=== PATIENT | female | born 2000 | race Native Hawaiian/Other Pacific Islander ===

== ENCOUNTER 2021-09-03 13:58 | Outpatient (CLI) | payer MEDICAID, SELFPAY ==
--- NOTE | 2021-09-03 14:00 | CRLHL7_ITS ---
For Patients: As a result of the Cures Act, medical imaging exams and procedure reports are released immediately into your electronic medical record. You may view this report before your referring provider. If you have questions, please contact your health care provider. INDICATION: First trimester scan, establish dates. COMPARISON: None. TECHNIQUE: Real-time hollis-scale imaging of the pelvis was performed. FINDINGS: Sonographic imaging demonstrates a single living intrauterine gestation. The embryo demonstrates a regular cardiac rate measuring 159 beats per minute. The embryo`s crown-rump length measurement of 1.4 cm corresponds to a gestational age of 7 weeks 5 days with a sonographic due date of 04/17/2022. There is a normal-appearing yolk sac. There are no gross abnormalities noted within the embryo at this early state of development. The gestational sac has a normal appearance. There is a 1.6 x 0.5 x 1.5 cm perigestational hemorrhage. The amount of fluid within the sac appears appropriate for gestational age. The cervix is closed. The myometrium appears normal. The ovaries are of normal size. Corpus luteal cyst left ovary. There are no suspicious fluid collections noted in the cul-de-sac. IMPRESSION: Single living intrauterine with sonographic gestational age 7 weeks 5 days and a sonographic due date 04/17/2022. Mid uterine subchorionic hemorrhage measuring 1.6 x 0.5 x 1.5 cm. Dictated by Maurice Carter MD @ 09/03/2021 3:26:50 PM (Electronically Signed)
== END 2021-09-03 13:59 | disposition home or self-care (01) ==
LOC: US 13:59
PROVIDERS: Visit Provider Registered Nurse
DX: Z34.91 Encounter for supervision of normal pregnancy, unspecified, first trimester (principal); Z3A.01 Less than 8 weeks gestation of pregnancy
CPT/HCPCS: 76817

== ENCOUNTER 2021-09-27 18:27 | Emergency (ER) | payer MEDICAID, SELFPAY ==
[2021-09-27 18:37] VITALS: BP 103/69; PULSE 68; RESP 20; TEMP 36; O2SAT 100; BMI 27.8
--- NOTE | 2021-09-27 19:04 | ED.GENADULT ---
HPI - General Adult General Chief complaint: Weakness Stated complaint: Lightheaded, shaking, vomiting Time Seen by Provider: 09/27/21 18:35 Source: patient Mode of arrival: ambulatory Limitations: no limitations History of Present Illness HPI narrative: 21-year-old female at 11 weeks gestation coming in today complaining of nausea and vomiting. States that she has been very nauseated her entire but the vomiting started about 3 days ago. She was prescribed promethazine and She was instructed to start taking Unisom and B6 but she has not gotten around to doing that yet. She denies any fevers or chills. She does complain of lower abdominal discomfort that comes and goes but she describes it as a discomfort and not pain or cramping. She denies any vaginal bleeding or discharge. She denies any sick contacts. She is not short of breath. She denies headaches blurry vision or shortness of breath. She has a healthy almost 2-year-old at home. Related Data Home Medications Medication Instructions Recorded Confirmed prenat.vits,misael,[id number] 1 tab PO QDAY 09/03/21 09/27/21 Previous Rx's Medication Instructions Recorded azithromycin 1 gram oral packet 1 g PO ONCE #1 ea 09/04/21 promethazine 12.5 mg tablet 12.5 mg PO TID PRN nausea and 09/27/21 vomiting #30 tabs Allergies Allergy/AdvReac Type Severity Reaction Status Date / Time No Known Allergies Allergy Verified 09/27/21 19:12 Review of Systems Status of ROS: Reports: 10 or more systems reviewed and unremarkable except as noted in History and below PFSH [facility] Medical History Chlamydia infection affecting Cyst of vulva History of persistent depressive disorder (09/13/15) Surgical History Status post delivery (2019) Family History Other Diabetes Down syndrome Social History Smoking Status: Former smoker Do you use any of these nicotine containing products: None Second hand tobacco smoke exposure: No How often do you have a drink containing alcohol: never How often do you have six or more drinks on one occasion: Never AUDIT-C Alcohol total score: 0 Non-prescribed substance use: denies use Little interest or pleasure in doing things: several days Feeling down, depressed, or hopeless: not at all service: No Exam Narrative: Exam Narrative: Well-nourished well-developed patient in no acute distress. Alert and oriented. Answers questions appropriately. Mood and affect are appropriate. Thoughts are goal oriented and rational. No tangential or magical thinking noted. Patient speaks in full sentences without needing to catch their breath. HEENT: Normocephalic atraumatic. Pupils are equally round reactive to light. Extraocular muscles are intact. Conjunctivae are moist without any icterus noted. Moist mucous membranes. Posterior pharynx is normal. Neck is soft without any lymphadenopathy or thyromegaly. No masses are appreciated. Cardiovascular: Heart is regular rate and rhythm S1 and S2 are present without any murmurs. Lungs: Clear to auscultation bilaterally no wheezes rhonchi or rales are appreciated. Patient takes deep breaths without any discomfort. Abdomen: Soft and nontender nondistended with normal bowel sounds. No guarding or rebound. No masses or organomegaly appreciated. Extremities: Bilateral lower extremities are without edema. Normal DP and PT pulses. Skin: Well perfused without any obvious rashes. Const: Vital Signs, click to edit/add: Vital Signs - 24 hr 09/27/21 18:37 09/27/21 19:26 Temperature 96.8 F L 97.1 F L Pulse Rate [Pulse Oximeter] 68 65 Respiratory Rate 20 20 Blood Pressure [Ri t Upper Arm] 103/69 98/65 Pulse Oximetry 100 100 Oxygen Delivery Me thod Room Air Room Air Course Course Hospital Course: IV was started and patient received 2L of normal saline and IV Zofran. She was feeling much better. Labs were unremarkable. Vital Signs Vital signs: Initial Vital Signs Temperature 96.8 F L 09/27/21 18:37 Temperature Source Temporal Artery Scan 09/27/21 18:37 Pulse Rate 68 09/27/21 18:37 Pulse Rhythm 09/27/21 18:37 Respiratory Rate 20 09/27/21 18:37 Blood Pressure 103/69 09/27/21 18:37 Blood Pressure Mean 80 09/27/21 18:37 Pulse Oximetry 100 09/27/21 18:37 Oxygen Delivery Method 09/27/21 18:37 Vital Signs Temperature 96.8 F L 09/27/21 18:37 Pulse Rate 68 09/27/21 18:37 Respiratory Rate 20 09/27/21 18:37 Blood Pressure 103/69 09/27/21 18:37 Pulse Oximetry 100 09/27/21 18:37 Oxygen Delivery Method 09/27/21 18:37 Temperature 97.2 F L 09/27/21 20:56 Pulse Rate 67 09/27/21 20:56 Respiratory Rate 18 09/27/21 20:56 Blood Pressure 96/60 09/27/21 20:56 Pulse Oximetry 100 09/27/21 20:56 Oxygen Delivery Method 09/27/21 20:56 Medical Decision Making MDM Narrative Medical decision making narrative: 21-year-old female with nausea and vomiting in . Patient discharged home in improved condition. She will start Unisom and B6 as previously instructed. She has a follow-up appointment this Monday. Return to the ER if symptoms worsen again. Lab Data Lab results reviewed: Yes I reviewed the patient's lab results Labs: Lab Results 09/27/21 09/27/21 09/27/21 Range/Units 19:10 19:10 21:20 WBC 9.04 (4.50-11.00) K/uL RBC 4.42 (4.00-5.20) m/uL Hgb 13.4 (12.0-16.0) gm/dL Hct 38.3 (33.0-51.0) % MCV 87 (80-100) fL MCH 30 (26-34) pg MCHC 35 (32-36) gm/dL RDW Coeff of Perla 11.9 (11.5-15.5) % Plt Count 252 (140-440) K/uL Neut % (Auto) 61.2 (42.0-72.0) % Lymph % (Auto) 29.9 (20-44) % [place] % (Auto) 6.5 (0.0-11.0) % Eos % (Auto) 1.5 (0.0-7.0) % Baso % (Auto) 0.2 (0.0-3.0) % Neut # (Auto) 5.53 (1.7-7.0) K/uL Lymph # (Auto) 2.70 (0.90-2.90) K/uL [place] # (Auto) 0.60 (0.00-0.90) K/UL Eos # (Auto) 0.14 (0.00-0.50) K/uL Baso # (Auto) 0.02 (0.00-0.30) K/uL Abs Immat Gran (auto) 0.06 (0.00-0.30) K/uL Sodium 137 (135-149) mmol/L Potassium 3.4 L (3.6-5.1) mmol/L Chloride 105 (96-114) mmol/L Carbon Dioxide 22 (20-32) mmol/L BUN 5 (5-24) mg/dL Creatinine 0.4 L (0.5-1.5) mg/dL Estimated Creat Clear 190.50 Estimated GFR 143 ml/min Glucose 72 (60-115) mg/dL Calcium 8.8 (8.4-10.6) mg/dL Total Bilirubin 0.3 (0.1-1.5) mg/dL Direct Bilirubin 0.1 (0.0-0.5) mg/dL AST 20 (12-35) U/L ALT 15 (4-35) U/L Alkaline Phosphatase 89 (40-150) U/L Total Protein 7.4 (6.0-8.3) g/dL Albumin 4.2 (3.3-5.0) g/dL Urine Color Yellow (Yellow) Urine Appearance Clear (Clear) Urine pH 6.0 (5.0-8.5) Ur Specific [place] >= 1.030 (1.000-1.030) Urine Protein Negative (Negative) Urine Glucose (UA) Negative (Negative) Urine Ketones 4+ A (Negative) Urine Blood Negative (Negative) Urine Nitrite Negative (Negative) Urine Bilirubin Negative (Negative) Urine Urobilinogen 0.2 (0.2-1.0) Ur Leukocyte Esterase Negative (Negative) Urine RBC 0-2 (0-2) Urine WBC 2-5 (0-5) Ur Squamous Epith Cells Many A (None-Few) Urine Bacteria None (None) Discharge Plan Discharge Clinical Impression: Vomiting affecting Patient Disposition: Home, Self-Care Condition: Improved Additional Instructions: Start Unisom and vitamin B6 as previously instructed. If you cannot keep down fluids return to the ER. Follow up on Monday as scheduled. Prescriptions: No Action prenat.vits,misael,[id number] Tablet 1 tab PO QDAY azithromycin 1 gram packet 1 g PO ONCE Qty: 1 0RF promethazine 12.5 mg tablet 12.5 mg PO TID PRN (Reason: nausea and vomiting) Qty: 30 1RF Follow Up/Referrals: Provider,Not a Local [Referring] - Stand Alone Forms: My[facility] Info Instructions
[2021-09-27] MEDS: 0.9 % SODIUM CHLORIDE 1000 ml 1,000 ML IV ×2 (19:11→20:15)
[2021-09-27] MEDS: ONDANSETRON 2 MG/ML inj 4 MG IVP (19:18)
[2021-09-27 19:26] VITALS: BP 98/65; PULSE 65; RESP 20; TEMP 36.2; O2SAT 100
[2021-09-27 19:46] LABS: Basophils Absolute Auto 0.02 K/uL (0.00-0.30); Basophils Percent Auto 0.2 % (0.0-3.0); Eosinophils Absolute Auto 0.14 K/uL (0.00-0.50); Eosinophils Percent Auto 1.5 % (0.0-7.0); Hematocrit 38.3 % (33.0-51.0); Hemoglobin* 13.4 gm/dL (12.0-16.0); Immature Granulocytes Abs Auto 0.06 K/uL (0.00-0.30); Lymphocytes Percent Auto 29.9 % (20-44); Mean Corpuscular HGB Conc 35 gm/dL (32-36); Mean Corpuscular Hemoglobin 30 pg (26-34); Mean Corpuscular Volume 87 fL (80-100); Monocytes Percent Auto 6.5 % (0.0-11.0); Neutrophils Absolute Auto 5.53 K/uL (1.7-7.0); Neutrophils Percent Auto 61.2 % (42.0-72.0); Platelet Count* 252 K/uL (140-440); RDW Coefficient of Variation % 11.9 % (11.5-15.5); Red Blood Count 4.42 m/uL (4.00-5.20); White Blood Count* 9.04 K/uL (4.50-11.00)
[2021-09-27 19:48] LABS: Slide Review Reflex No
[2021-09-27 19:58] LABS: Albumin* 4.2 g/dL (3.3-5.0); Chloride* 105 mmol/L (96-114); Potassium* 3.4 mmol/L (3.6-5.1); Sodium* 137 mmol/L (135-149)
[2021-09-27 20:00] LABS: Creatinine* 0.4 mg/dL (0.5-1.5); Estimated Glomerular Filt Rate 143 ml/min
[2021-09-27 20:01] LABS: Alanine Aminotransferase* 15 U/L (4-35); Alkaline Phosphatase* 89 U/L (40-150); Aspartate Amino Transferase* 20 U/L (12-35); Bilirubin Direct* 0.1 mg/dL (0.0-0.5); Bilirubin Total* 0.3 mg/dL (0.1-1.5); Blood Urea Nitrogen* 5 mg/dL (5-24); Calcium* 8.8 mg/dL (8.4-10.6); Carbon Dioxide* 22 mmol/L (20-32); Glucose* 72 mg/dL (60-115); Total Protein* 7.4 g/dL (6.0-8.3)
[2021-09-27 20:56] VITALS: BP 96/60; PULSE 67; RESP 18; TEMP 36.2; O2SAT 100
[2021-09-27 21:27] LABS: Appearance Urine Clear (Clear); Bilirubin Urine Negative (Negative); Blood Urine Negative (Negative); Color Urine Yellow (Yellow); Glucose Urine Negative (Negative); Ketones Urine 4+ (Negative); Leukocyte Esterase Urine Negative (Negative); Nitrite Urine Negative (Negative); Protein Urine Negative (Negative); Specific Gravity Urine >= 1.030 (1.000-1.030); Urobilinogen Urine 0.2 (0.2-1.0)
[2021-09-27 21:45] LABS: RBC Urine 0-2 (0-2); Squamous Epithelial Cell Urine Many (None-Few)
== END 2021-09-27 21:33 | disposition home or self-care (01) ==
PROVIDERS: Emergency Provider Family Medicine; PCP Obstetrics & Gynecology
DX: R11.10 Vomiting, unspecified (principal); Z3A.11 11 weeks gestation of pregnancy
CPT/HCPCS: 36415; 80048; 80076; 81001; 85025; 87086; 96374; 99283; 99284; J2405; J7030

== ENCOUNTER 2021-10-01 11:22 | Outpatient (CLI) | payer MEDICAID, SELFPAY ==
[2021-10-01 17:05] LABS: Chlamydia DNA Amplified* NOT DETECTED (No Detected); GC DNA Amplified* NOT DETECTED (No Detected)
== END 2021-10-01 11:23 | disposition home or self-care (01) ==
LOC: NFLDREF 11:23
PROVIDERS: PCP Obstetrics & Gynecology; Visit Provider Obstetrics & Gynecology
DX: A74.9 Chlamydial infection, unspecified (principal); O98.811 Other maternal infectious and parasitic diseases complicating pregnancy, first trimester; Z3A.12 12 weeks gestation of pregnancy
CPT/HCPCS: 87491; 87591

== ENCOUNTER 2021-11-07 06:13 | Emergency (ER) | payer MEDICAID, SELFPAY ==
--- NOTE | 2021-11-07 06:39 | CRLHL7_ITS ---
For Patients: As a result of the Cures Act, medical imaging exams and procedure reports are released immediately into your electronic medical record. You may view this report before your referring provider. If you have questions, please contact your health care provider. INDICATION: 17 weeks . Pain. FINDINGS: Fetus: Single. Presentation: Cephalic. cardiac xhyeilcz=211 beats per minute and regular. Placenta: Anterior, os clear. Amniotic fluid: Adequate. Cervix: 3.7 cm in length. Adnexa: Unremarkable. No acute abnormalities identified. Dictated by Behzad Barnes MD @ 11/07/2021 8:32:42 AM Dictated by: Behzad Barnes MD @ 11/07/2021 08:32:50 (Electronically Signed)
[2021-11-07 06:43] VITALS: BP 98/66; PULSE 74; RESP 18; TEMP 36.9; O2SAT 99; BMI 26.4
--- NOTE | 2021-11-07 06:43 | ED.PREGNANCY ---
HPI - General Chief complaint: OB/Uterine Contractions <Aiden Izaguirre MD - Last Filed: 11/07/21 06:49> Stated complaint: 17 weeks and cramping <Aiden Izaguirre MD - Last Filed: 11/07/21 06:49> Time Seen by Provider: 11/07/21 06:28 <Aiden Izaguirre MD - Last Filed: 11/07/21 06:49> History of Present Illness HPI Narrative: Pt is a 21 year old woman who is 17 weeks who comes in with low pelvic discomfort. She has had no vaginal bleeding or discomfort. Her current has been complicated by vomiting however she has not had any vomiting for the past 2 days. Current otherwise progressing fine. No fevers or chills. No dysuria. No other abdominal pain. Pain is concerned about the status of her baby and would like an ultrasound. Discomfort is mild. She is otherwise up to date on her care. <Aiden Izaguirre MD - Last Filed: 11/07/21 06:49> Related Data Home medications: Home Medications Medication Instructions Recorded Confirmed cholecalciferol (vitamin D3) 25 25 mcg PO QDAY 10/28/21 11/07/21 mcg (1,000 unit) capsule ferrous sulfate 325 mg (65 mg 325 mg PO QDAY 10/28/21 11/07/21 iron) tablet Previous Rx's Medication Instructions Recorded docusate sodium 100 mg capsule 100 mg PO QDAY #60 caps 10/28/21 (Colace) ondansetron 4 mg disintegrating 4 mg PO Q6H PRN nausea and 10/28/21 tablet vomiting #30 tabs amoxicillin 500 mg capsule 500 mg PO TID 7 days #21 caps 11/07/21 <Aiden Izaguirre MD - Last Filed: 11/07/21 06:49> Allergies/Adverse reactions: Allergies Allergy/AdvReac Type Severity Reaction Status Date / Time No Known Allergies Allergy Verified 10/28/21 10:55 <Aiden Izaguirre MD - Last Filed: 11/07/21 06:49> Review of Systems Status of ROS: Reports: 10 or more systems reviewed and unremarkable except as noted in History and below <Aiden Izaguirre MD - Last Filed: 11/07/21 06:49> PFSH PFSH Medical History: Medical History Chlamydia infection affecting Cyst of vulva History of persistent depressive disorder (09/13/15) <Aiden Izaguirre MD - Last Filed: 11/07/21 06:49> Surgical History: Surgical History Status post delivery (10/26/19) <Aiden Izaguirre MD - Last Filed: 11/07/21 06:49> Family History: Family History Other Diabetes Down syndrome <Aiden Izaguirre MD - Last Filed: 11/07/21 06:49> Social History: Social History Smoking Status: Former smoker Do you use any of these nicotine containing products: None Second hand tobacco smoke exposure: No How often do you have a drink containing alcohol: never How often do you have six or more drinks on one occasion: Never AUDIT-C Alcohol total score: 0 Non-prescribed substance use: denies use Little interest or pleasure in doing things: several days Feeling down, depressed, or hopeless: not at all <Aiden Izaguirre MD - Last Filed: 11/07/21 06:49> Exam Narrative: Exam Narrative: EXAM GENERAL: Patient appears comfortable and well. EYES: No scleral icterus. THYROID: no thyroid nodules or thyromegaly. LYMPH: No supraclavicular or cervical lymphadenopathy. SKIN: Visible skin seen during exam normal or with benign process only. EXT: No dependent lower extremity pedal edema. HEART: Regular rate and rhythm with no murmurs, rubs, or gallops. LUNGS: Clear to auscultation bilaterally with no crackles or wheezes. ABD: Soft, non tender, non distended. Aprroximately 17 week gestation uterus palpated. No pain with palpation. PSYCH: Good eye contact, speech is not pressured. <Aiden Izaguirre MD - Last Filed: 11/07/21 06:49> Const: Vital Signs, click to edit/add: Vital Signs - 24 hr 11/07/21 06:43 Temperature 98.5 F Pulse Rate [Right Pulse Oximeter] 74 Respiratory Rate 18 Blood Pressure [Ri ght Upper Arm] 98/66 Pulse Oximetry 99 Oxygen Delivery Me thod Room Air <Aiden Izaguirre MD - Last Filed: 11/07/21 06:49> Vital Signs, click to edit/add: Vital Signs - 24 hr 11/07/21 06:43 Temperature 98.5 F Pulse Rate [Right Pulse Oximeter] 74 Respiratory Rate 18 Blood Pressure [Ri ght Upper Arm] 98/66 Pulse Oximetry 99 Oxygen Delivery Me thod Room Air <Jose Alna MD - Last Filed: 11/07/21 08:43> Course Course Hospital Course: Pt seen and examined. Confirmed that she is not having vaginal bleeding. UA and ultrasound ordered. Previous chart reviewed. <Aiden Izaguirre MD - Last Filed: 11/07/21 06:49> Vital Signs Vital signs: Initial Vital Signs Temperature 98.5 F 11/07/21 06:43 Temperature Source Temporal Artery Scan 11/07/21 06:43 Pulse Rate 74 11/07/21 06:43 Respiratory Rate 18 11/07/21 06:43 Blood Pressure 98/66 11/07/21 06:43 Blood Pressure Mean 76 11/07/21 06:43 Blood Pressure Position Sitting 11/07/21 06:43 Pulse Oximetry 99 11/07/21 06:43 Oxygen Delivery Method 11/07/21 06:43 Vital Signs Temperature 98.5 F 11/07/21 06:43 Pulse Rate 74 11/07/21 06:43 Respiratory Rate 18 11/07/21 06:43 Blood Pressure 98/66 11/07/21 06:43 Pulse Oximetry 99 11/07/21 06:43 Oxygen Delivery Method 11/07/21 06:43 Temperature 98.5 F 11/07/21 06:43 Pulse Rate 74 11/07/21 06:43 Respiratory Rate 18 11/07/21 06:43 Blood Pressure 98/66 11/07/21 06:43 Pulse Oximetry 99 11/07/21 06:43 Oxygen Delivery Method 11/07/21 06:43 <Aiden Izaguirre MD - Last Filed: 11/07/21 06:49> Initial Vital Signs Temperature 98.5 F 11/07/21 06:43 Temperature Source Temporal Artery Scan 11/07/21 06:43 Pulse Rate 74 11/07/21 06:43 Respiratory Rate 18 11/07/21 06:43 Blood Pressure 98/66 11/07/21 06:43 Blood Pressure Mean 76 11/07/21 06:43 Blood Pressure Position Sitting 11/07/21 06:43 Pulse Oximetry 99 11/07/21 06:43 Oxygen Delivery Method 11/07/21 06:43 Vital Signs Temperature 98.5 F 11/07/21 06:43 Pulse Rate 74 11/07/21 06:43 Respiratory Rate 18 11/07/21 06:43 Blood Pressure 98/66 11/07/21 06:43 Pulse Oximetry 99 11/07/21 06:43 Oxygen Delivery Method 11/07/21 06:43 Temperature 98.5 F 11/07/21 06:43 Pulse Rate 74 11/07/21 06:43 Respiratory Rate 18 11/07/21 06:43 Blood Pressure 98/66 11/07/21 06:43 Pulse Oximetry 99 11/07/21 06:43 Oxygen Delivery Method 11/07/21 06:43 <Jose Alan MD - Last Filed: 11/07/21 08:43> MDM - OB/Uterine Contractions MDM Narrative Medical decision making narrative: This patient comes in with crampy abdominal pain and is 17 weeks . Ultrasound of her shows normal findings without any evidence of complication reason for her pain. Urinalysis does show 5-10 white blood cells per high-powered field indicating possibility of urinary tract infection. The patient received a prescription for amoxicillin. She may be having abdominal pain at this stage in related to ligaments supporting the uterus. In any event her vital signs and ultrasound are reassuring to the patient. <Jose Alan MD - Last Filed: 11/07/21 08:43> Lab Data Labs: Lab Results 11/07/21 Range/Units 08:15 Urine Color Yellow (Yellow) Urine Appearance Slightly Cloudy A (Clear) Urine pH 8.5 (5.0-8.5) Ur Specific [place] 1.020 (1.000-1.030) Urine Protein Negative (Negative) Urine Glucose (UA) Negative (Negative) Urine Ketones Negative (Negative) Urine Blood Negative (Negative) Urine Nitrite Negative (Negative) Urine Bilirubin Negative (Negative) Urine Urobilinogen 0.2 (0.2-1.0) Ur Leukocyte Esterase 1+ A (Negative) Urine RBC 0-2 (0-2) Urine WBC 5-10 A (0-5) Ur Squamous Epith Cells Moderate A (None-Few) Urine Bacteria Few A (None) Urine Mucus Moderate A (None) <Aiden Izaguirre MD - Last Filed: 11/07/21 06:49> Lab Results 11/07/21 Range/Units 08:15 Urine Color Yellow (Yellow) Urine Appearance Slightly Cloudy A (Clear) Urine pH 8.5 (5.0-8.5) Ur Specific [place] 1.020 (1.000-1.030) Urine Protein Negative (Negative) Urine Glucose (UA) Negative (Negative) Urine Ketones Negative (Negative) Urine Blood Negative (Negative) Urine Nitrite Negative (Negative) Urine Bilirubin Negative (Negative) Urine Urobilinogen 0.2 (0.2-1.0) Ur Leukocyte Esterase 1+ A (Negative) Urine RBC 0-2 (0-2) Urine WBC 5-10 A (0-5) Ur Squamous Epith Cells Moderate A (None-Few) Urine Bacteria Few A (None) Urine Mucus Moderate A (None) <Jose Alan MD - Last Filed: 11/07/21 08:43> Imaging Data US - Pelvic: Radiologist's impression: Fetus: Single. Presentation: Cephalic. cardiac qlavjhpm=755 beats per minute and regular. Placenta: Anterior, os clear. Amniotic fluid: Adequate. Cervix: 3.7 cm in length. Adnexa: Unremarkable. No acute abnormalities identified. <Jose Alan MD - Last Filed: 11/07/21 08:43> Discharge Plan Discharge Clinical Impression: Urinary tract infection <Aiden Izaguirre MD - Last Filed: 11/07/21 06:49> Patient Disposition: Home, Self-Care <Aiden Izaguirre MD - Last Filed: 11/07/21 06:49> Condition: Stable <Aiden Izaguirre MD - Last Filed: 11/07/21 06:49> Additional Instructions: take medication as prescribed. Follow up with MD or return if worsening symptoms happen. <Aiden Izaguirre MD - Last Filed: 11/07/21 06:49> Prescriptions: New amoxicillin 500 mg capsule 500 mg PO TID 7 Days Qty: 21 0RF No Action ferrous sulfate 325 mg (65 mg iron) tablet 325 mg PO QDAY cholecalciferol (vitamin D3) 25 mcg (1,000 unit) capsule 25 mcg PO QDAY ondansetron 4 mg tablet,disintegrating 4 mg PO Q6H PRN (Reason: nausea and vomiting) Qty: 30 0RF docusate sodium [Colace] 100 mg capsule 100 mg PO QDAY Qty: 60 2RF <Aiden Izaguirre MD - Last Filed: 11/07/21 06:49> Follow Up/Referrals: Casandra Posada MD [Primary Care Provider] - <Aiden Izaguirre MD - Last Filed: 11/07/21 06:49> Stand Alone [facility]: [facility] <Aiden Izaguirre MD - Last Filed: 11/07/21 06:49>
[2021-11-07] MEDS: ONDANSETRON ODT 4 MG TAB PO (07:29)
--- NOTE | 2021-11-07 07:47 | PC.NURSE ---
pt to US
--- NOTE | 2021-11-07 08:20 | PC.NURSE ---
urine to lab
[2021-11-07 08:32] LABS: Appearance Urine Slightly Cloudy (Clear); Bilirubin Urine Negative (Negative); Blood Urine Negative (Negative); Color Urine Yellow (Yellow); Glucose Urine Negative (Negative); Ketones Urine Negative (Negative); Leukocyte Esterase Urine 1+ (Negative); Nitrite Urine Negative (Negative); Protein Urine Negative (Negative); Urobilinogen Urine 0.2 (0.2-1.0); pH Urine 8.5 (5.0-8.5)
[2021-11-07 08:33] LABS: Bacteria Urine Few; RBC Urine 0-2 (0-2); Squamous Epithelial Cell Urine Moderate (None-Few)
[2021-11-07 08:34] LABS: Mucus Urine Moderate
== END 2021-11-07 09:01 | disposition home or self-care (01) ==
PROVIDERS: Emergency Provider Internal Medicine; PCP Obstetrics & Gynecology
DX: O23.42 Unspecified infection of urinary tract in pregnancy, second trimester (principal); N39.0 Urinary tract infection, site not specified; Z3A.17 17 weeks gestation of pregnancy
CPT/HCPCS: 76815; 81003; 81015; 87086; 99283; 99284; A9270

== ENCOUNTER 2021-11-24 08:34 | Outpatient (CLI) | payer MEDICAID, SELFPAY ==
--- NOTE | 2021-11-24 08:45 | CRLHL7_ITS ---
For Patients: As a result of the Century Cures Act, medical imaging exams and procedure reports are released immediately into your electronic medical record. You may view this report before your referring provider. If you have questions, please contact your health care provider. INDICATION: Evaluate anatomy. COMPARISON: 11/07/2021 TECHNIQUE: Real time hollis scale imaging of the fetus was performed as well as color Doppler analysis of the umbilical vessels. FINDINGS: Sonographic imaging demonstrates a single living intrauterine gestation. Fetus demonstrates a regular cardiac rate of 154 beats per minute. Fetus has a vertex position. The placenta lies anteriorly without evidence of placenta previa. The edge of the placenta is located 5.2 cm from the internal cervical os. Amniotic fluid volume appears normal. Single deepest vertical pocket: 4.5 cm. The cervix is closed and measures 4.2 cm in length. The composite ultrasound gestational age is calculated at 19 weeks 4 days with an estimated sonographic due date of 04/16/2022. The estimated weight is 284 grams which lies at the 13th %. The following biometric measurements were obtained: Biparietal diameter: 4.5 cm/19 weeks 4 days 31st% Head circumference: 16.6 cm/19 weeks 2 days 13th% Abdominal circumference: 13.6 cm/19 weeks 0 days 16th% Femur length: 3.1 cm/19 weeks 4 days 27th% The HC/AC ratio measures: 1.22 range (1.08-1.26) On anatomic survey, there is a normal appearance of the cerebral ventricles, cavum septi pellucidi, cisterna magna and cerebellum. The nose, lips, and facial profile appear normal. The cervical, thoracic and lumbar spine are well visualized and appear normal. There is a normal four-chamber heart view and the left and right ventricular outflow tracts appear normal. The diaphragm and stomach appear normal. The kidneys and bladder also appear normal. There is a normal three-vessel cord and cord insertion site. The four extremities appear normal. IMPRESSION: Concordance of clinical and sonographic dating. No intrinsic abnormalities noted on anatomic survey. Estimated weight 13th percentile. Abdominal circumference 16th percentile. Dictated by Maurice Carter MD @ 11/24/2021 10:09:08 AM (Electronically Signed)
== END 2021-11-24 08:35 | disposition home or self-care (01) ==
LOC: US 08:35
PROVIDERS: PCP Obstetrics & Gynecology; Visit Provider Obstetrics & Gynecology
DX: O21.0 Mild hyperemesis gravidarum (principal); Z3A.20 20 weeks gestation of pregnancy
CPT/HCPCS: 76805

== ENCOUNTER 2022-01-19 08:14 | Outpatient (CLI) | payer MEDICAID, SELFPAY ==
[2022-01-20 23:49] LABS: Rapid Plasma Reagin (RPR) Non Reactive (Non Reactive)
== END 2022-01-19 08:15 | disposition home or self-care (01) ==
PROVIDERS: PCP Obstetrics & Gynecology; Visit Provider Obstetrics & Gynecology
DX: Z34.93 Encounter for supervision of normal pregnancy, unspecified, third trimester (principal); Z3A.28 28 weeks gestation of pregnancy
CPT/HCPCS: 86592; 87086

== ENCOUNTER 2022-01-19 08:16 | Outpatient (CLI) | payer MEDICAID, SELFPAY ==
--- NOTE | 2022-01-19 08:15 | CRLHL7_ITS ---
For Patients: As a result of the Century Cures Act, medical imaging exams and procedure reports are released immediately into your electronic medical record. You may view this report before your referring provider. If you have questions, please contact your health care provider. INDICATION: Third trimester scan, evaluate growth. COMPARISON: 11/24/2021 TECHNIQUE: Real time hollis scale imaging of the fetus was performed. FINDINGS: Sonographic imaging demonstrates a single living intrauterine gestation. Fetus demonstrates a regular cardiac rate of 144 beats per minute. Fetus has a cephalic position. The placenta lies anterior. Amniotic fluid volume appears normal and there is a single deepest vertical pocket: 6.2 cm. The estimated weight is 1236gm which lies at the 57th %. On the prior OB ultrasound exam dated 11.24.21 the estimated weight was at the 13th%. BPD 31th percentile. HC 14th percentile. AC 70th percentile. FL 44th percentile. The HC/AC ratio measures 1.04 range (1.02-1.21). IMPRESSION: Sonographic gestational age 28 weeks 1 day and sonographic due date 04/12/2022. Good correlation with dates. Normal interval growth. Estimated weight 57th percentile. Abdominal circumference 70th percentile. Dictated by Maurice Carter MD @ 01/19/2022 9:14:12 AM (Electronically Signed)
== END 2022-01-19 08:17 | disposition home or self-care (01) ==
LOC: US 08:17
PROVIDERS: PCP Obstetrics & Gynecology; Visit Provider Obstetrics & Gynecology
DX: Z34.93 Encounter for supervision of normal pregnancy, unspecified, third trimester (principal); Z3A.28 28 weeks gestation of pregnancy
CPT/HCPCS: 76816

== ENCOUNTER 2022-01-21 09:17 | Outpatient (CLI) | payer MEDICAID, SELFPAY ==
[2022-01-21 08:47] LABS: Glucose Fasting Check 76 mg/dl (60-115)
[2022-01-21 12:34] LABS: Glucose 1 Hour Gest 141 mg/dl (70-180)
[2022-01-21 12:34] LABS: Glucose GTT-Gestational 3 Hr 94 mg/dl (70-140)
== END 2022-01-21 09:18 | disposition home or self-care (01) ==
PROVIDERS: PCP Obstetrics & Gynecology; Visit Provider Obstetrics & Gynecology
DX: O99.810 Abnormal glucose complicating pregnancy (principal)
CPT/HCPCS: 82951; 82952

== ENCOUNTER 2022-01-26 13:13 | Outpatient (CLI) | payer MEDICAID, SELFPAY ==
[2022-01-26] VITALS (17 sets, daily range): BP systolic 104; BP diastolic 61; PULSE 75–102; RESP 16; TEMP 36.6; O2SAT 98–100
[2022-01-26 13:57] LABS: Appearance Urine Clear (Clear); Bilirubin Urine Negative (Negative); Blood Urine Trace-intact (Negative); Color Urine Yellow (Yellow); Glucose Urine Negative (Negative); Ketones Urine Negative (Negative); Leukocyte Esterase Urine 1+ (Negative); Nitrite Urine Negative (Negative); Protein Urine Negative (Negative); Specific Gravity Urine >= 1.030 (1.000-1.030); Urobilinogen Urine 0.2 (0.2-1.0); pH Urine 5.5 (5.0-8.5)
[2022-01-26 14:05] LABS: Amorphous Sediment Urine Few; Bacteria Urine Moderate; RBC Urine 0-2 (0-2); Squamous Epithelial Cell Urine Few (None-Few)
[2022-01-26 14:06] LABS: Mucus Urine Few
[2022-01-26 14:13] LABS: Amnisure Rom* Negative
--- NOTE | 2022-01-26 17:50 | PC.OBNST ---
NST Note NST Note Start: 01/26/22 13:24 Freq: ONCE Status: Active Protocol: Document 01/26/22 14:25 IKE (Rec: 01/26/22 17:50 IKE [id number]) NST Note 2 Para (# of births) 1 EDC 04/13/22 Gestational Age In Weeks & Days 29 Weeks & 0 Days Patient Presented with Complaint(s) of Decreased movement Reactive Yes Appropriate for Gestational Age Yes RN Destiny Delgadillo RN Date 01/26/22 Reactive Yes Appropriate for Gestational Age Yes ZAIDA Carey RN Date 01/26/22 OB NST charge Yes Complete NST Note via Write Note Yes The provider's electronic signature indicates the NST is reactive/appropriate for gestational age. *Note to provider: If an addendum is required, open the patient's chart and click on the note under the Nurse/Allied Health tab.
== END 2022-01-26 14:50 | disposition home or self-care (01) ==
LOC: OB OUT 13:13 → OB 13:18
PROVIDERS: PCP Obstetrics & Gynecology; Visit Provider Obstetrics & Gynecology
DX: O36.8130 Decreased fetal movements, third trimester, not applicable or unspecified (principal); Z3A.29 29 weeks gestation of pregnancy
CPT/HCPCS: 59025; 81003; 81015; 84112; 87086; 99213

== ENCOUNTER 2022-02-17 13:50 | Outpatient (CLI) | payer MEDICAID, SELFPAY ==
[2022-02-17 14:47] LABS: Albumin* 3.6 g/dL (3.3-5.0)
[2022-02-17 14:50] LABS: Alanine Aminotransferase* 19 U/L (4-35); Alkaline Phosphatase* 109 U/L (40-150); Aspartate Amino Transferase* 22 U/L (12-35); Bilirubin Direct* 0.1 mg/dL (0.0-0.5); Bilirubin Total* 0.4 mg/dL (0.1-1.5); Total Protein* 6.3 g/dL (6.0-8.3)
[2022-02-18 17:11] LABS: Bile Acids, Total <1 umol/L (0-10)
== END 2022-02-17 13:51 | disposition home or self-care (01) ==
PROVIDERS: PCP Obstetrics & Gynecology; Visit Provider Physician Assistant
DX: L29.9 Pruritus, unspecified (principal)
CPT/HCPCS: 80076; 82239

== ENCOUNTER 2022-03-02 08:52 | Outpatient (CLI) | payer MEDICAID, SELFPAY | END 2022-03-02 08:53 | disposition home or self-care (01) | PROVIDERS: PCP Obstetrics & Gynecology; Visit Provider Obstetrics & Gynecology | DX: R39.15 Urgency of urination (principal) | CPT/HCPCS: 87086 ==

== ENCOUNTER 2022-03-03 15:53 | Outpatient (CLI) | payer MEDICAID, SELFPAY ==
[2022-03-03 16:19] VITALS: BP 99/58; PULSE 78; PULSE 85; RESP 16; TEMP 37.1; O2SAT 98
[2022-03-03] MEDS: ACETAMINOPHEN 500 MG TABLET 1000 MG PO (17:01)
[2022-03-03 19:22] VITALS: BP 101/55; PULSE 85; RESP 16; TEMP 36.7
--- NOTE | 2022-03-03 19:36 | PC.OBNST ---
NST Note NST Note Start: 03/03/22 16:04 Freq: ONCE Status: Active Protocol: Document 03/03/22 19:33 AVL (Rec: 03/03/22 19:35 AVL [id number]) NST Note 2 Para (# of births) 1 EDC 04/13/22 Gestational Age In Weeks & Days 34 Weeks & 1 Days Patient Presented with Complaint(s) of Observation after an injury If Observation after an injury, describe fall on abdomen If Pain, describe location minor pain on the side of her abdomen Reactive Yes Appropriate for Gestational Age Yes ZAIDA Mead RN Date 03/03/22 Reactive Yes Appropriate for Gestational Age Yes ZAIDA Newell RN Date 03/03/22 OB NST charge Yes Complete NST Note via Write Note Yes The provider's electronic signature indicates the NST is reactive/appropriate for gestational age. *Note to provider: If an addendum is required, open the patient's chart and click on the note under the Nurse/Allied Health tab.
== END 2022-03-03 19:31 | disposition home or self-care (01) ==
LOC: OB OUT 15:57 → OB 15:59
PROVIDERS: PCP Obstetrics & Gynecology; Visit Provider Obstetrics & Gynecology
DX: O26.893 Other specified pregnancy related conditions, third trimester (principal); S39.91XA Unspecified injury of abdomen, initial encounter; Z3A.34 34 weeks gestation of pregnancy
CPT/HCPCS: 59025; 99213; A9270

== ENCOUNTER 2022-03-15 09:33 | Outpatient (CLI) | payer MEDICAID, SELFPAY ==
--- NOTE | 2022-03-15 08:45 | CRLHL7_ITS ---
For Patients: As a result of the Cures Act, medical imaging exams and procedure reports are released immediately into your electronic medical record. You may view this report before your referring provider. If you have questions, please contact your health care provider. INDICATION: / Growth, fluid, position COMPARISON: 01/19/2022 TECHNIQUE: Real time hollis scale imaging of the fetus was performed. FINDINGS: Sonographic imaging demonstrates a single living intrauterine gestation. Fetus demonstrates a regular cardiac rate of 154 beats per minute. Fetus has a vertex position. The placenta lies anteriorly. Amniotic fluid volume appears normal and there is a single deepest vertical pocket: 4.9 cm. The estimated weight is 2704gm which lies at the 41st %. On the prior OB ultrasound exam dated 01/19/2022 the estimated weight was at the 57th%. BPD 59th percentile. HC 66th percentile. AC 45th percentile. FL 21st percentile. The HC/AC ratio measures 1.05 range (0.93-1.08). IMPRESSION: Sonographic gestational age 36 weeks 0 days and sonographic due date 04/12/2022. Good correlation with dates. Normal interval growth. Estimated weight 41st percentile. Abdominal circumference 45th percentile. Dictated by Maurice Carter MD @ 03/15/2022 11:06:57 AM (Electronically Signed)
== END 2022-03-15 09:34 | disposition home or self-care (01) ==
PROVIDERS: PCP Obstetrics & Gynecology; Visit Provider Obstetrics & Gynecology
DX: O34.219 Maternal care for unspecified type scar from previous cesarean delivery (principal); Z3A.36 36 weeks gestation of pregnancy
CPT/HCPCS: 76816

== ENCOUNTER 2022-03-15 10:33 | Outpatient (CLI) | payer MEDICAID, SELFPAY ==
[2022-03-16 12:23] LABS: Strep B DNA Probe NEGATIVE (Negative)
[2022-03-16 12:31] LABS: Strep B Pen/Amox Allergy No
== END 2022-03-15 10:34 | disposition home or self-care (01) ==
LOC: NFLDREF 10:34
PROVIDERS: PCP Obstetrics & Gynecology; Visit Provider Obstetrics & Gynecology
DX: O34.219 Maternal care for unspecified type scar from previous cesarean delivery (principal); Z3A.36 36 weeks gestation of pregnancy
CPT/HCPCS: 87081; 87653

== ENCOUNTER 2022-03-22 09:53 | Outpatient (CLI) | payer MEDICAID, SELFPAY ==
--- NOTE | 2022-03-22 10:15 | CRLHL7_ITS ---
For Patients: As a result of the Century Cures Act, medical imaging exams and procedure reports are released immediately into your electronic medical record. You may view this report before your referring provider. If you have questions, please contact your health care provider. INDICATION: Assess well-being. Assess amniotic fluid. TECHNIQUE: Transabdominal obstetrical ultrasound. COMPARISON: March 15, 2022. FINDINGS: Single living intrauterine in vertex presentation. Anterior placenta. heart rate 144 beats per minute. Normal amniotic fluid. Single deepest pocket measurement 3.1 cm. Amniotic fluid volume index 8.7 cm. Biophysical profile score 8/8 with 2 points given each for breathing, movement, tone, and amniotic fluid. IMPRESSION: Biophysical profile score 8/8. Dictated by Elias Evans MD @ 03/22/2022 11:48:45 AM (Electronically Signed)
== END 2022-03-22 09:54 | disposition home or self-care (01) ==
LOC: US 09:54
PROVIDERS: PCP Obstetrics & Gynecology; Visit Provider Obstetrics & Gynecology
DX: Z34.93 Encounter for supervision of normal pregnancy, unspecified, third trimester (principal)
CPT/HCPCS: 76819

== ENCOUNTER 2022-04-06 21:41 | Inpatient (IN) | payer MEDICAID, SELFPAY ==
[2022-04-06] VITALS (8 sets, daily range): BP systolic 109–111; BP diastolic 66–72; PULSE 92–110; RESP 18; TEMP 37.1–37.6; O2SAT 99–100; BMI 27.3
[2022-04-06] MEDS: LACTATED RINGERS 1000 ML 1,000 ML IV (20:44)
--- NOTE | 2022-04-06 22:18 | P.OBHP_ITS ---
OB - H&P: HPI Labor/Induction History of Present Illness Date Seen: 04/06/22 Chief Complaint: The patient is a 22 year old 2 para 1 at 39.0 weeks gestation by 7 wk TVUS, who presents with contractions. Patient with previous C/S X 1 in 2019 uncomplicated and intended to have Trial of labor if spontaneously labor, otherwise, planned on having RLTCS scheduled for next week if no active labor. Patient was seen in triage for contractions, was given IV fluids during rule out labor and had cervical change from 3-4 cm dilated and continued to contract. Patient admitted for trial of labor. States no vaginal bleeding, no loss of fluid, + normal movement. Chief complaint: Maternity Narrative: Lizeth King is a 22 year old female History of Present Dating criteria: based on LMP (consistent with TVUS at 7 weeks gestation) care: good care Ultrasounds: normal 1st trimester US Medical complications: none Labs Blood type: O (+) positive Rubella: immune RPR/VDLR: nonreactive GBS status: negative HBsAG: negative Review of Systems Status of ROS: Reports: 10 or more systems reviewed and unremarkable except as noted in History and below Meds Home Medications and Allergies Home Medications Medication Instructions Recorded Confirmed Type ferrous sulfate 325 mg (65 mg 325 mg PO QDAY 10/28/21 04/06/22 History iron) tablet docosahexaenoic acid 200 mg 200 mg PO DAILY 11/24/21 04/06/22 History capsule ( DHA) Allergies Allergy/AdvReac Type Severity Reaction Status Date / Time No Known Allergies Allergy Verified 04/01/22 13:26 OB - H&P: Exam Physical Exam: Vital signs: Temp Pulse Resp BP Pulse Ox 99.4 F 106 H 18 109/72 100 04/06/22 20:30 04/06/22 19:51 04/06/22 19:59 04/06/22 19:51 04/06/22 21:15 Constitutional: Constitutional: no acute distress Routine HEENT Exam: Head: Present atraumatic and normocephalic Eye: Present normal appearance Routine Respiratory Exam: Respiratory: Present CTA bilaterally Routine Cardiovascular Exam: Cardiovascular: RRR Detailed Labor and Delivery Exam: Patient Gravid: Yes Dilation (cm): 3 Effacement (%): 75 Cervix position: mid Consistency: soft Contraction frequency (min): 3 Contraction duration (sec): 40 Fetus (Single): Station: -2 Amniotic Membrane Status: intact Heart Rate Baseline: 150 Monitor Accelerations: Present Monitor Decelerations: None Integrated Program Teacher Variability: Moderate (6-25) Routine Extremities Exam: Extremities: Present full ROM, normal capillary refill, normal inspection and pulses intact Routine Skin Exam: Present warm and normal turgor Routine Neurological Exam: Present alert, oriented X3, normal reflexes and normal tone OB - Problem Based A/P Additional Plan (1) Uterine contractions: Status: Acute Delivery/Labor/Induction Plan Plan: expectant management (Admit labor and delivery, IV fluids, labs, anticipate , consent for trial of labor after section discussed with patient. )
[2022-04-06 23:17] LABS: SARS PCR* Negative SARS-CoV-2 (Negative)
[2022-04-06 23:56] LABS: Basophils Percent Auto 0.2 % (0.0-3.0); Eosinophils Percent Auto 0.1 % (0.0-7.0); Hematocrit 33.4 % (33.0-51.0); Hemoglobin* 11.3 gm/dL (12.0-16.0); Immature Granulocytes Pct Auto 0.2 %; Lymphocytes Percent Auto 14.5 % (20-44); Mean Corpuscular HGB Conc 34 gm/dL (32-36); Mean Corpuscular Hemoglobin 30 pg (26-34); Mean Corpuscular Volume 89 fL (80-100); Monocytes Percent Auto 6.9 % (0.0-11.0); Neutrophils Percent Auto 78.1 % (42.0-72.0); Platelet Count* 186 K/uL (140-440); RDW Coefficient of Variation % 13.4 % (11.5-15.5); Red Blood Count 3.76 m/uL (4.00-5.20); White Blood Count* 13.27 K/uL (4.50-11.00)
[2022-04-07] VITALS (108 sets, daily range): BP systolic 64–173; BP diastolic 46–122; PULSE 64–167; RESP 16–20; TEMP 36.8–39.4; O2SAT 93–100
[2022-04-07 00:02] LABS: Slide Review Reflex No
[2022-04-07] MEDS: LACTATED RINGERS 1000 ML 1,000 ML IV (01:56)
[2022-04-07] MEDS: LIDOCAINE 2% (PF) 5 ML VIAL EPIDURAL (02:42)
[2022-04-07] MEDS: ROPIVACAINE 0.2% 100 ml 100 ML 10 MG EPIDURAL (02:48)
--- NOTE | 2022-04-07 02:51 | P.ANBPRC_ITS ---
[facility] Medical History (Updated 04/06/22 @ 22:39 by Hanna Calhoun DO) Chlamydia infection affecting Cyst of vulva History of persistent depressive disorder (09/13/15) Surgical History Status post delivery (10/26/19) Family History Other Diabetes Down syndrome Social History Smoking Status: Never smoker Do you use any of these nicotine containing products: None Second hand tobacco smoke exposure: No How often do you have a drink containing alcohol: never How often do you have six or more drinks on one occasion: Never AUDIT-C Alcohol total score: 0 Non-prescribed substance use: denies use Little interest or pleasure in doing things: several days Feeling down, depressed, or hopeless: not at all Meds Home Medications and Allergies Home Medications Medication Instructions Recorded Confirmed Type ferrous sulfate 325 mg (65 mg 325 mg PO QDAY 10/28/21 04/06/22 History iron) tablet docosahexaenoic acid 200 mg 200 mg PO DAILY 11/24/21 04/06/22 History capsule ( DHA) Allergies Allergy/AdvReac Type Severity Reaction Status Date / Time No Known Allergies Allergy Verified 04/01/22 13:26 Results Labs Labs: Laboratory Results - last 24 hr 04/06/22 04/06/22 04/06/22 22:08 23:50 23:50 WBC 13.27 H RBC 3.76 L Hgb 11.3 L Hct 33.4 MCV 89 MCH 30 MCHC 34 RDW Coeff of Perla 13.4 Plt Count 186 Neut % (Auto) 78.1 H Lymph % (Auto) 14.5 L [place] % (Auto) 6.9 Eos % (Auto) 0.1 Baso % (Auto) 0.2 Neut # (Auto) 10.40 H Lymph # (Auto) 1.90 [place] # (Auto) 0.90 Eos # (Auto) 0.00 Baso # (Auto) 0.00 SARS-CoV-2 (PCR) Negative SARS-CoV-2 Blood Type O Positive Antibody Screen NEGATIVE Vital Signs Vital Signs: Last Vital Signs Temp 98.7 F 04/06/22 23:38 Pulse 87 04/07/22 02:48 Resp 18 04/06/22 23:38 BP 97/56 L 04/07/22 02:48 Pulse Ox 99 04/07/22 02:48 Weight: 72.439 kg Height: 162.56 cm Anesthesia Procedures Epidural Insertion Patient Location: OB Start Time: 02:30 Stop Time: 02:55 Start Date: 04/07/22 Stop Date: 04/07/22 Reason for Block: procedure for pain Patient Position: sitting Performed By: Syed Pineda Preanesthetic Checklist: IV checked, site marked, risks and benefits discussed, monitors and equipment checked, pre-op evaluation, timeout performed and anesthesia consent Prep: chlorhexidine gluconate Monitoring: blood pressure monitoring, continuous pulse oximetry and heart rate Approach: midline Vertebral Space: lumbar (1-5) Epidural Technique: SHIREEN saline Needle Type: Tuohy needle Injection Technique: continuous catheter Needle gauge: 17 Needle Length (cm): 10 cm Needle Insertion Depth (cm): 4 Catheter Gauge: 19 Catheter Type: multi-orifice Catheter at skin depth (cm): 10 Test Dose Result: negative and lidocaine 1.5% with epinephrine 1 to 200,000
[2022-04-07] MEDS: PHENYLEPHRINE 100 MCG/ML SYRINGE IVP ×5 (03:01→12:10)
[2022-04-07] MEDS: ePHEDrine sulfate 5 MG/ML inj 10 MG IVP ×2 (03:12→05:34)
[2022-04-07] MEDS: LACTATED RINGERS 1000 ML 1,000 ML 125 ML IV ×3 (05:10→20:13)
--- NOTE | 2022-04-07 06:37 | P.OBPN_ITS ---
Subjective Time Seen by Provider: 06:00 Date Seen: 04/07/22 Narrative: Patient resting comfortable with epidural, states she is not feeling contractions at all anymore. Objective Vital Signs: Last Vital Signs Temp 98.3 F 04/07/22 06:16 Pulse 81 04/07/22 06:26 Resp 16 04/07/22 05:40 BP 91/53 L 04/07/22 06:26 Pulse Ox 98 04/07/22 03:13 Pelvic Exam Dilation (cm): 5 Effacement (%): 80 Station: 0 Contractions Monitor mode: External Contraction Frequency: 4-5 minutes Contraction pattern: Regular Contraction intensity: Mild Assessment Assessment: early labor Station: 0 Amniotic Membrane Status: AROM (artificial rupture at 0555 am) Status: Category l Heart Rate Baseline: 150 Restaurant Server Variability: Moderate (6-25) Monitor Accelerations: Present Monitor Decelerations: None Plan Plan: will augment with pitocin
--- NOTE | 2022-04-07 08:31 | PM.OBPNL ---
Subjective Time Seen by Provider: 08:30 Date Seen: 04/07/22 Narrative: Pt very comfortable with epidural, no complaints or concerns at this time. Objective Vital Signs: Last Vital Signs Temp 98.5 F 04/07/22 08:01 Pulse 99 04/07/22 08:28 Resp 16 04/07/22 08:01 BP 96/53 L 04/07/22 08:28 Pulse Ox 98 04/07/22 03:13 Pelvic Exam Dilation (cm): 8 Effacement (%): 100 Station: +1 Contractions Monitor mode: External Contraction pattern: Regular Contraction intensity: Moderate Assessment Assessment: active labor Station: +1 Amniotic Membrane Status: AROM (artificial rupture at 0555 am) Status: Category l Heart Rate Baseline: [address] Variability: Moderate (6-25) Monitor Accelerations: Present Monitor Decelerations: None Labor Progress: Pt progressing without needing st start pitocin for now. Since AROM, contractions have become more regular. Patient instructed to call us when she starts feeling vaginal / rectal pressure. Maternal Status: stable Plan Plan: continue current expectant management. Pitocin ordered, not started due to adequate contractions at this time.
[2022-04-07] MEDS: ACETAMINOPHEN 500 MG TABLET 1000 MG PO ×2 (08:35→20:19)
[2022-04-07] MEDS: OXYTOCIN 30 unit/500 ML in NS 30 UNIT/500 ML BAG 300 UNIT IVPB (11:45)
[2022-04-07] MEDS: miSOPROStoL 800 MCG/4 TABLET PR (11:50)
[2022-04-07] MEDS: TRANEXAMIC ACID 100 MG/ML INJ 1000 MG IV (11:52)
[2022-04-07] MEDS: METHYLERGONOVINE MALEATE 0.2 MG/ML INJ IM (11:53)
--- NOTE | 2022-04-07 12:22 | P.OBPRC_ITS ---
Procedure Delivery date: 04/07/22 Procedure Done: only Events: Previous (X 1) Intrapartal Events: Excessive Bleeding and Febrile (>100.4F) Delivery augmentation: rupture of membranes Delivery monitor: external FHT and external uterine Route of delivery: Episiotomy description: None Laceration description: Labial (bilateral labia minora ) Delivery repair: Vicryl (3-0) Estimated blood loss (mL): 700 Anesthesia type: Epidural Disposition: no change Complications: QBL 700 mL, maternal fever after delivery with uterine atony, foul smelling amniotic fluid immediately after delivery suspicious of chorioamnionitis Narrative: Patient complete dilated at 1112am, Patient delivered viable female in NOEMI position across intact perineum at 1144am with nuchal cord X 1 reduced prior to delivery of remainder of fetus. Cord clamped and cut at one minute delay, without attempt of spontaneous breathing until stimulation, after suctioning and stimulation, spontaneously breathing occurred at approximately one minute. was transferred to [facility] for further evaluation and assessment. Uterine atony noted with TXA IV, pitocin IV, cytotec 800 mcg rectal, methergine IM given during which time 700 mL blood loss occurred. After uterine tone was established, bilateral labia minora lacerations (first degree) were approximated with 3-0 vicryl. Maternal BP at 68/40 and maternal HR was at 160 bpm, coupled with maternal temperature of 101.7, will start antibiotics IV X 24 hours. remained at warmer requiring CPAP and nurse practitioner called for further evaluation. [place] Gender: Female presentation: vertex Placental Delivery Description: Spontaneous Cord Description: 3 Vessels, Nuchal Cord (X1), Loose and Reduced OB Vag Delivery Procedures Additional Procedures ECV: No Cook Catheter Insertion: No NST: No D&C: No Laceration Repair: Yes (bilateral labia minora first degree repair with 3-0 vicryl ) Tubal Ligation : No Other: No
[2022-04-07] MEDS: IBUPROFEN 600 MG TABLET PO ×2 (13:04→19:01)
[2022-04-07] MEDS: AMPICILLIN 2 GM in 0.9 % SODIUM CHLORIDE Mini-bag 100 ML IVPB ×2 (14:00→20:14)
[2022-04-08] VITALS (7 sets, daily range): BP systolic 86–99; BP diastolic 53–60; PULSE 59–65; RESP 14–16; TEMP 36.3–36.8; O2SAT 97–98
[2022-04-08] MEDS: IBUPROFEN 600 MG TABLET PO ×3 (00:40→15:05)
[2022-04-08] MEDS: AMPICILLIN 2 GM in 0.9 % SODIUM CHLORIDE Mini-bag 100 ML IVPB ×2 (02:28→08:32)
[2022-04-08] MEDS: ACETAMINOPHEN 500 MG TABLET 1000 MG PO ×2 (05:18→19:43)
[2022-04-08 06:48] LABS: Hemoglobin* 10.3 gm/dL (12.0-16.0)
[2022-04-08] MEDS: DOCUSATE SODIUM 100 MG CAPSULE PO (08:35)
--- NOTE | 2022-04-08 11:04 | P.OBPN_ITS ---
OB - PN:Subj Subjective Date Seen: 04/08/22 Interval history: S/P TOLAC PPD # 1 viable female Patient comments OB post-: no complaints, pain well controlled, tolerating diet and flatus present [place] status: and doing well feeding status: exclusively Narrative: Patient states she is doing well, no longer having chills, denies LOYA / SOB/CP/vision changes. No fevers since yesterday at 1400 pm. Minimal lochia, no clots, no concerns for today. OB - PN: Obj Exam Physical Exam: Vital signs: Temp Pulse Resp BP Pulse Ox O2 Del Method 97.5 F L 62 16 99/53 L 98 04/08/22 08:35 04/08/22 08:35 04/08/22 08:35 04/08/22 08:35 04/08/22 08:35 04/08/22 08:35 Constitutional: Constitutional: no acute distress and cooperative Routine HEENT Exam: Head: Present atraumatic and normocephalic Routine Respiratory Exam: Respiratory: Present CTA bilaterally Routine Cardiovascular Exam: Cardiovascular: Present RRR Routine Abdominal Exam: Abdominal: Present soft Fundus: Present firm Routine Exam: Patient deferred: external exam and perineal exam Routine Extremities Exam: Extremities: Present full ROM, normal capillary refill and pulses intact Routine Neurological Exam: Neurological: Present alert and oriented X3 OB - PN: Obj Data Labs Labs: Laboratory Results - last 24 hr 04/08/22 06:25 Hgb 10.3 L OB - PN: A/P Vaginal Delivery Assessment and Plan (1) Vaginal delivery: Status: Acute (2) Single live : Status: Acute (3) Uterine contractions: Status: Resolved Plan day: 1 Plan: routine care and other (disconitnue antibiotics - patient afebrile since delivery)
[2022-04-08] MEDS: LANOLIN CREAM 1 APPLIC TOPICAL (20:13)
[2022-04-09 01:20] VITALS: BP 92/56; PULSE 66; RESP 16; TEMP 36.5; O2SAT 98
[2022-04-09] MEDS: IBUPROFEN 600 MG TABLET PO ×2 (01:29→08:21)
[2022-04-09 04:06] VITALS: BP 92/55; PULSE 51; RESP 14; TEMP 36.5; O2SAT 97
[2022-04-09 07:45] VITALS: BP 99/66; PULSE 60; RESP 16; TEMP 36.4; O2SAT 97
--- NOTE | 2022-04-09 11:16 | PM.OBPNVD1 ---
OB - PN:Subj Subjective Date Seen: 04/09/22 Interval history: S/P TOLAC PPD # 2 viable female . Patient states she is doing well, being discharged home today, has to stay due to bilirubin issues, so patient is going to room in, denies LOYA, SOB, CP or vision changes, no complaints or concerns, minimal lochia, ambulating, voiding, tolerating regular diet. OB - PN: Obj Exam Physical Exam: Vital signs: Temp Pulse Resp BP Pulse Ox O2 Del Method 97.7 F 51 L 14 92/55 L 97 04/09/22 04:06 04/09/22 04:06 04/09/22 04:06 04/09/22 04:06 04/09/22 04:06 04/09/22 04:06 Constitutional: Constitutional: no acute distress and cooperative Routine HEENT Exam: Head: Present atraumatic and normocephalic Routine Respiratory Exam: Respiratory: Present CTA bilaterally Routine Cardiovascular Exam: Cardiovascular: Present RRR Routine Abdominal Exam: Abdominal: Present soft Fundus: Present firm Routine Exam: Patient deferred: external exam and perineal exam Routine Extremities Exam: Extremities: Present full ROM, normal inspection and pulses intact Routine Skin Exam: Skin: Present dry, normal color and warm Routine Neurological Exam: Neurological: Present alert and oriented X3 OB - PN: A/P Vaginal Delivery Assessment and Plan (1) Vaginal delivery: Status: Acute (2) Single live : Status: Acute (3) Uterine contractions: Status: Resolved Plan day: 2 Plan: routine care and discharge home
--- NOTE | 2022-04-09 11:19 | P.DS_ITS ---
DS: Providers Provider Time Seen by Provider: 09:18 Date Seen: 04/09/22 Date of admission: 04/06/22 21:41 Primary care physician: Casandar Posada MD Admitting Clinician: Hanna Calhoun DO Attending Physician on discharge: Hanna Calhoun DO Exam Const: Vital Signs, click to edit/add: Vital Signs - 24 hr 04/08/22 13:15 04/08/22 16:42 04/08/22 19:46 Temperature 97.9 F 98.1 F 97.4 F L Pulse Rate [Pulse Oximeter] 59 L 62 60 Respiratory Rate 16 16 Blood Pressure [Ri ght Arm] 91/57 L 86/53 L 86/56 L Pulse Oximetry 98 97 98 Oxygen Delivery Me thod Room Air Room Air Room Air 04/09/22 01:20 04/09/22 04:06 Temperature 97.7 F 97.7 F Pulse Rate [Pulse Oximeter] 66 51 L Respiratory Rate 16 14 Blood Pressure [Ri ght Arm] 92/56 L 92/55 L Pulse Oximetry 98 97 Oxygen Delivery Me thod Room Air Room Air Common normals: oriented x3 HENMT: Common normals: normocephalic and head/scalp atraumatic Head and scalp: normocephalic and atraumatic Resp: Common normals: normal respiratory effort, no retractions and clear to auscultation bilaterally Auscultation: clear to auscultation bilaterally Cardio: Common normals: regular rate and regular rhythm Rate: regular rate Rhythm: regular rhythm GI: Common normals: Normal to inspection, nondistended, normoactive bowel sounds present, soft to palpation, non-tender and no masses Palpation: soft : Uterus: U/1 Lochia: small Extremity: Common normals: normal to inspection and no clubbing, cyanosis or edema Neuro: Common normals: oriented x3 Skin: Common normals: skin turgor normal General skin exam: turgor normal OB - DS: Summary Hospital Course Hospital Course: The patient is a 22 year old G 2 P 2 at 39.1 weeks gestation that was admitted to the Center on 04/06/22 for spontaneous labor. Patient with history of previous section X 1 due to distress and patient had signed consent for TOLAC in office prior to arrival to L&D. She had a complicated vaginal delivery secondary to hemorrhage. She delivered a viable female infant. She is breast and bottle feeding. the patient has done well. Peripartum Data delivery method: Laceration description: Vaginal - 1st Degree Episiotomy description: None complications: none [place] Gender: Female Discharge Plan: Home Status at Discharge Functional status at discharge: independent ambulation Overall status at discharge: patient is back to baseline Time Spent with Patient Time attestation: Total time spent providing and/or coordinating discharge services: Time spent: Less than 30 minutes Discharge Plan Discharge Disposition: Home, Self-Care Date of Admission: 04/06/22 21:41 Attending Provider on Discharge: Hanna Calhoun Primary Care Provider: Casandra Posada Condition: Stable Anticipated Discharge Date/Time: 04/09/22 11:19 Discharge Medications: New ibuprofen 600 mg Tablet 600 mg PO Q6H PRN5 Days Qty: 30 0RF Continued DHA 200 mg capsule 200 mg PO DAILY Discontinued ferrous sulfate 325 mg (65 mg iron) tablet 325 mg PO QDAY Discharge Orders: Discharge Order (Routine); Ordered 04/09/22 Ordered By: Hanna Calhoun Patient Education: OB Over the Counter Medication Information, OB Vaginal/Breast Feeding Activity Level: Activity as Tolerated and Light activity Activity Detail: no lifting > 15-20 lbs, no tub bathing, no tampon use, no vaginal penetrative intercourse for 6 weeks Discharge Diet: Regular Follow Up Appointments: Casandra Posada MD [Primary Care Provider] - Forms: [email or web address] Info Instructions
== END 2022-04-09 14:10 | disposition home or self-care (01) | DRG 806 ==
LOC: OB OUT 21:43 → OB 21:54
PROVIDERS: Admitting Provider Obstetrics & Gynecology; PCP Obstetrics & Gynecology; Visit Provider Obstetrics & Gynecology
DX: O34.211 Maternal care for low transverse scar from previous cesarean delivery (principal); O72.1 Other immediate postpartum hemorrhage; Z37.0 Single live birth; O70.0 First degree perineal laceration during delivery; Z3A.39 39 weeks gestation of pregnancy
CPT/HCPCS: 01967; 36415; 85018; 85025; 86850; 86900; 86901; 87635; 99213; A9270; J0290; J1580; J2210; J2370; J2795; J7120

== ENCOUNTER 2022-04-18 17:10 | Outpatient (CLI) | payer MEDICAID, SELFPAY ==
--- NOTE | 2022-04-18 17:00 | CRLHL7_ITS ---
For Patients: As a result of the Century Cures Act, medical imaging exams and procedure reports are released immediately into your electronic medical record. You may view this report before your referring provider. If you have questions, please contact your health care provider. INDICATION: 11 days post-, bleeding and passing clots. ?RPOC COMPARISON: 03/22/2022 TECHNIQUE: 2D hollis scale and color Doppler images were acquired of the pelvis using a transabdominal approach. FINDINGS: Sonographic images demonstrate a normal size and smooth outer contour of the uterus. Uterus measures 10.5 cm in length by 7.8 cm in AP diameter by 10.4 cm in transverse dimension. The myometrium has a normal uniform echotexture. The endometrium is filled with nonvascular heterogeneously hypoechoic fluid, measuring in total 5.6 x 5.2 x 5.3 cm. No internal vascularity. The ovaries are not visualized. There are no suspicious fluid collections within the cul-de-sac. IMPRESSION: Blood products are present within the endometrium. No abnormal vascularity to suggest retained products of conception. Dictated by Maurice Carter MD @ 04/19/2022 9:52:20 AM (Electronically Signed)
== END 2022-04-18 17:11 | disposition home or self-care (01) ==
LOC: US 17:11
PROVIDERS: PCP Obstetrics & Gynecology; Visit Provider Advanced Practice Midwife
DX: O72.1 Other immediate postpartum hemorrhage (principal)
CPT/HCPCS: 76856

== ENCOUNTER 2023-05-26 14:38 | Outpatient (CLI) | payer MEDICAID, SELFPAY ==
[2023-05-26 20:21] LABS: Chlamydia DNA Amplified* NOT DETECTED (No Detected); GC DNA Amplified* NOT DETECTED (No Detected)
== END 2023-05-26 14:39 | disposition home or self-care (01) ==
PROVIDERS: Visit Provider Registered Nurse
DX: N92.6 Irregular menstruation, unspecified (principal)
CPT/HCPCS: 84443; 87491; 87591

== ENCOUNTER 2024-04-03 16:10 | Outpatient (CLI) | payer MEDICAID, SELFPAY ==
[2024-04-03 21:19] LABS: Bacterial Vaginosis* POSITIVE (Negative); Candida glab/krus NOT DETECTED (No Detected); Candida species NOT DETECTED (No Detected); Trichomonas vaginalis NOT DETECTED (No Detected)
[2024-04-03 21:51] LABS: Chlamydia DNA Amplified* NOT DETECTED (No Detected); GC DNA Amplified* NOT DETECTED (No Detected)
[2024-04-06 12:00] LABS: HPV Source Cervix; HPV, High Risk by TMA Not Detected
[2024-04-12 17:52] LABS: Pap Test Reviewed by Path Done
== END 2024-04-03 16:11 | disposition home or self-care (01) ==
PROVIDERS: PCP Registered Nurse; Visit Provider Registered Nurse
DX: Z30.017 Encounter for initial prescription of implantable subdermal contraceptive (principal); N89.8 Other specified noninflammatory disorders of vagina; R30.0 Dysuria; N92.6 Irregular menstruation, unspecified; F41.8 Other specified anxiety disorders
CPT/HCPCS: 81513; 84443; 87086; 87481; 87491; 87591; 87624; 87625; 87661; 88141; 88142